=== PATIENT | male | born 1980 | race African-American/Black ===

== ENCOUNTER 2017-09-07 21:55 | Inpatient (IN) | payer MEDICAID, OTHER ==
[~2017-09-07] VITALS: Ht 172.7 cm; Wt 76.2 kg
[~2017-09-07 21:55] MED LIST: AMLO-511 PO; BENZ1TAB10 PO; FERR-89 PO; HALO10 PO; PHEN100C23 PO; RISP3 PO
[2017-09-07] MEDS ORDERED: VENL25TA47 PO (22:14)
[2017-09-07] MEDS ORDERED: DSS100 PO (22:14)
[2017-09-07] MEDS ORDERED: MAAES30 PO (22:14)
[2017-09-07] MEDS ORDERED: CLOZ25TA4 PO (22:14)
[2017-09-07] MEDS ORDERED: GABA-318 PO (22:14)
[2017-09-07 22:39] LABS: BASOPHILS % (AUTO) 0.4 % (0.0-2.0); EOSINOPHILS % (AUTO) 6.2 % (1.0-6.0); HEMATOCRIT 40.3 % (41-53); HEMOGLOBIN 13.2 g/dL (13.5-17.5); LYMPHOCYTES # (AUTO) 2.6 K/uL (1.0-4.8); LYMPHOCYTES % (AUTO) 29.2 % (22.0-44.0); MEAN CORPUSCULAR HEMOGLOBIN 27.3 pg (26.0-34.0); MEAN CORPUSCULAR HGB CONC 32.8 G/dL (31.0-37.0); MEAN CORPUSCULAR VOLUME 83 fL (80-100); MONOCYTES # (AUTO) 0.8 K/uL (0.1-1.0); NEUTROPHILS # (AUTO) 4.9 K/uL (1.8-7.7); NEUTROPHILS % (AUTO) 55.2 % (40.0-70.0); PLATELET COUNT (AUTO) 289 K/uL (150-450); RED BLOOD CELL COUNT(AUTO) 4.83 MIL/uL (4.50-5.90); RED CELL DISTRIBUTION WIDTH 14.5 % (11.5-14.5)
[2017-09-07 22:48] LABS: ANION GAP 11 mmol/L (8-16); CALCIUM, TOTAL 8.8 mg/dL (8.8-10.5); CARBON DIOXIDE 24 mmol/L (22-29); CHLORIDE 104 mmol/L (98-107); CREATININE 0.94 mg/dL (0.60-1.30); GLOMERULAR FILTR. RATE CALC > 60 mL/min (>60); GLUCOSE,RANDOM 133 mg/dL (70-110); POTASSIUM 3.9 mmol/L (3.5-5.1); SODIUM SERUM 139 mmol/L (136-145); UREA NITROGEN, BLOOD 20 mg/dL (7-18)
[2017-09-07 22:54] LABS: ALANINE AMINOTRANSFERASE 42 U/L (12-78); ALBUMIN 3.8 g/dL (3.4-5.0); ALKALINE PHOSPHATASE 129 U/L (46-116); ASPARTATE AMINOTRANSFERASE 20 U/L (15-37); BILIRUBIN,TOTAL 0.1 mg/dL (0.1-1.0); TOTAL PROTEIN, SERUM 7.9 g/dL (6.4-8.2)
[2017-09-07] MEDS ORDERED: HALOPERIDOL 5 MG TABLET PO PRN (23:15)
[2017-09-07 23:48] LABS: AMPHET/METH SCREEN,URINE NEGATIVE (NEGATIVE); BARBITURATE SCREEN, URINE NEGATIVE (NEGATIVE); BENZODIAZEPINES SCREEN,URINE NEGATIVE (NEGATIVE); CANNABINOID SCREEN,URINE NEGATIVE (NEGATIVE); COCAINE SCREEN,URINE NEGATIVE (NEGATIVE); METHADONE SCREEN, URINE NEGATIVE (NEGATIVE); OPIATE SCREEN,URINE NEGATIVE (NEGATIVE); PHENCYCLIDINE SCREEN,URINE NEGATIVE (NEGATIVE)
[2017-09-08 01:17] VITALS: BP 128/99
[2017-09-08] MEDS ORDERED: PNEUMOCOCCAL VACCINE POLYVALENT 0.5 ML VIAL [PPSV23] IM ONE (03:45)
[2017-09-08] MEDS ORDERED: ACETAMINOPHEN 325 MG TABLET PO PRN ×2 (06:45→08:15)
[2017-09-08] MEDS ORDERED: IBUPROFEN 400 MG TABLET PO PRN ×2 (06:45→08:15)
[2017-09-08 08:00] VITALS: BP 130/74
[2017-09-08 08:30] LABS: BASOPHILS % (AUTO) 0.5 % (0.0-2.0); EOSINOPHILS % (AUTO) 7.1 % (1.0-6.0); HEMATOCRIT 40.6 % (41-53); HEMOGLOBIN 13.4 g/dL (13.5-17.5); LYMPHOCYTES # (AUTO) 2.6 K/uL (1.0-4.8); LYMPHOCYTES % (AUTO) 30.1 % (22.0-44.0); MEAN CORPUSCULAR HEMOGLOBIN 27.5 pg (26.0-34.0); MEAN CORPUSCULAR HGB CONC 32.9 G/dL (31.0-37.0); MEAN CORPUSCULAR VOLUME 84 fL (80-100); MONOCYTES # (AUTO) 0.7 K/uL (0.1-1.0); MONOCYTES % (AUTO) 8.2 % (2.0-9.0); NEUTROPHILS # (AUTO) 4.6 K/uL (1.8-7.7); NEUTROPHILS % (AUTO) 54.1 % (40.0-70.0); PLATELET COUNT (AUTO) 307 K/uL (150-450); RED BLOOD CELL COUNT(AUTO) 4.86 MIL/uL (4.50-5.90); RED CELL DISTRIBUTION WIDTH 14.7 % (11.5-14.5)
[2017-09-08 08:52] LABS: HEMOGLOBIN A1C 6.2 % (4.5-6.2)
[2017-09-08 09:04] LABS: ALANINE AMINOTRANSFERASE 40 U/L (12-78); ALBUMIN 3.6 g/dL (3.4-5.0); ALKALINE PHOSPHATASE 125 U/L (46-116); ANION GAP 11 mmol/L (8-16); ASPARTATE AMINOTRANSFERASE 20 U/L (15-37); BILIRUBIN,TOTAL 0.2 mg/dL (0.1-1.0); CALCIUM, TOTAL 8.8 mg/dL (8.8-10.5); CARBON DIOXIDE 23 mmol/L (22-29); CHLORIDE 105 mmol/L (98-107); CHOL/HDL RATIO 3.9 (4.2-7.3); CHOLESTEROL 174 mg/dL (131-200); CREATININE 0.85 mg/dL (0.60-1.30); FREE T4 (FREE THYROXINE) 0.86 ng/dL (0.76-1.46); GLOMERULAR FILTR. RATE CALC > 60 mL/min (>60); GLUCOSE,RANDOM 107 mg/dL (70-110); HDL CHOLESTEROL 45 mg/dL (40-60); LDL CHOL (CALC.) 89 mg/dL (0-130); POTASSIUM 4.4 mmol/L (3.5-5.1); SODIUM SERUM 139 mmol/L (136-145); TOTAL PROTEIN, SERUM 7.6 g/dL (6.4-8.2); TRIGLYCERIDES 200 mg/dL (15-150); UREA NITROGEN, BLOOD 17 mg/dL (7-18)
[2017-09-08 16:10] VITALS: BP 130/76
[2017-09-08] MEDS: BENZTROPINE MESYLATE 1 MG TABLET PO SCH (16:56)
[2017-09-08] MEDS: FERROUS SULFATE 325 MG EC TABLET PO SCH (16:56)
[2017-09-08] MEDS: LORazepam 2 MG TABLET PO PRN (16:56)
[2017-09-08] MEDS: ZOLPIDEM TARTRATE 10 MG TABLET PO PRN (20:21)
[2017-09-08] MEDS: RisperiDONE 2 MG TABLET PO SCH (20:21)
[2017-09-08] MEDS: GABAPENTIN 300 MG CAPSULE PO SCH (20:21)
[2017-09-09] MEDS: FERROUS SULFATE 325 MG EC TABLET PO SCH ×3 (06:25→16:22)
[2017-09-09 06:30] VITALS: BP 120/90
[2017-09-09 08:15] VITALS: BP 128/70
[2017-09-09 08:46] LABS: HEMOGLOBIN A1C 6.2 % (4.5-6.2)
[2017-09-09] MEDS: VENLAFAXINE HCL 37.5 MG TABLET PO SCH ×3 (09:00→12:05)
[2017-09-09 09:13] LABS: CHOL/HDL RATIO 4.2 (4.2-7.3); THYROID STIMULATING HORMONE 1.3 uIU/mL (0.36-3.74)
[2017-09-09] MEDS: BENZTROPINE MESYLATE 1 MG TABLET PO SCH ×2 (10:17→16:22)
[2017-09-09] MEDS: ONDANSETRON HCL 4 MG TABLET PO PRN (10:18)
[2017-09-09 16:22] VITALS: BP 110/79
[2017-09-09] MEDS: LORazepam 2 MG TABLET PO PRN (16:40)
[2017-09-09] MEDS: ZOLPIDEM TARTRATE 10 MG TABLET PO PRN (20:34)
[2017-09-09] MEDS: GABAPENTIN 300 MG CAPSULE PO SCH (20:34)
[2017-09-09] MEDS: RisperiDONE 2 MG TABLET PO SCH (20:34)
[2017-09-10] MEDS: FERROUS SULFATE 325 MG EC TABLET PO SCH ×3 (06:19→16:17)
[2017-09-10 06:33] VITALS: BP 107/65
[2017-09-10 08:08] VITALS: BP 133/75
[2017-09-10] MEDS: VENLAFAXINE HCL 37.5 MG TABLET PO SCH (08:33)
[2017-09-10] MEDS: BENZTROPINE MESYLATE 1 MG TABLET PO SCH ×2 (08:33→16:17)
[2017-09-10 16:00] VITALS: BP 126/72
[2017-09-10] MEDS: ZOLPIDEM TARTRATE 10 MG TABLET PO PRN (20:33)
[2017-09-10] MEDS: RisperiDONE 2 MG TABLET PO SCH (20:33)
[2017-09-10] MEDS: GABAPENTIN 300 MG CAPSULE PO SCH (20:33)
[2017-09-10] MEDS: MAGNESIUM HYDROXIDE SUSPENSION 30 ML UDCUP PO PRN (21:42)
[2017-09-10 23:40] VITALS: BP 130/84
[2017-09-10] MEDS: LORazepam 2 MG TABLET PO PRN (23:46)
[2017-09-11 03:17] VITALS: BP 120/81
[2017-09-11] MEDS: FERROUS SULFATE 325 MG EC TABLET PO SCH ×3 (06:59→16:31)
[2017-09-11 08:00] VITALS: BP 114/76
[2017-09-11] MEDS: BENZTROPINE MESYLATE 1 MG TABLET PO SCH ×2 (08:07→16:31)
[2017-09-11] MEDS: ONDANSETRON HCL 4 MG TABLET PO PRN ×2 (08:09→18:19)
[2017-09-11] MEDS: VENLAFAXINE HCL 37.5 MG TABLET PO SCH (12:40)
[2017-09-11 17:14] VITALS: BP 110/70
[2017-09-11] MEDS: RisperiDONE 2 MG TABLET PO SCH (20:18)
[2017-09-11] MEDS: GABAPENTIN 300 MG CAPSULE PO SCH (20:18)
[2017-09-11] MEDS: ZOLPIDEM TARTRATE 10 MG TABLET PO PRN (21:04)
[2017-09-12 06:42] VITALS: BP 101/60
[2017-09-12] MEDS: FERROUS SULFATE 325 MG EC TABLET PO SCH ×3 (06:57→16:33)
[2017-09-12 08:01] VITALS: BP 114/81
[2017-09-12] MEDS: BENZTROPINE MESYLATE 1 MG TABLET PO SCH ×2 (08:06→16:34)
[2017-09-12] MEDS: VENLAFAXINE HCL 37.5 MG TABLET PO SCH (08:06)
[2017-09-12] MEDS: LORazepam 2 MG TABLET PO PRN ×2 (08:06→16:34)
[2017-09-12] MEDS: MAGNESIUM HYDROXIDE SUSPENSION 30 ML UDCUP PO PRN (10:54)
[2017-09-12 16:32] VITALS: BP 116/86
[2017-09-12] MEDS: RisperiDONE 2 MG TABLET PO SCH (18:32)
[2017-09-12] MEDS: ZOLPIDEM TARTRATE 10 MG TABLET PO PRN (20:52)
[2017-09-12] MEDS: GABAPENTIN 300 MG CAPSULE PO SCH (20:52)
[2017-09-12] MEDS ORDERED: DOCUSATE SODIUM 100 MG CAPSULE PO PRN (21:30)
[2017-09-13] MEDS: FERROUS SULFATE 325 MG EC TABLET PO SCH ×2 (06:39→11:42)
[2017-09-13 06:56] VITALS: BP 120/81
[2017-09-13] MEDS ORDERED: LOPERAMIDE HCL 2 MG CAPSULE PO PRN (07:30)
[2017-09-13 08:08] VITALS: BP 117/85
[2017-09-13] MEDS: BENZTROPINE MESYLATE 1 MG TABLET PO SCH (08:19)
[2017-09-13] MEDS: RisperiDONE 2 MG TABLET PO SCH (08:19)
[2017-09-13] MEDS ORDERED: VENLAFAXINE HCL 75 MG ER CAPSULE PO SCH (09:00)
[2017-09-13] MEDS ORDERED: BENZ1TAB10 PO (09:37)
[2017-09-13] MEDS ORDERED: GABA-531 PO (09:37)
[2017-09-13] MEDS ORDERED: VENL-67 PO (09:37)
[2017-09-13] MEDS ORDERED: FERR-89 PO (09:37)
[2017-09-13] MEDS ORDERED: RISP2 PO (09:37)
== END 2017-09-13 12:15 | disposition home or self-care (01) | DRG 750 ==
LOC: EMS 21:56 → B3A 23:30 → B2S 09-10 16:15
PROVIDERS: ADMIT Psychiatry & Neurology Child & Adolescent Psychiatry; ATTEND Psychiatry & Neurology Child & Adolescent Psychiatry
DX: F25.1 Schizoaffective disorder, depressive type (principal); G40.909 Epilepsy, unspecified, not intractable, without status epilepticus; R45.851 Suicidal ideations; I10 Essential (primary) hypertension; E78.5 Hyperlipidemia, unspecified; D64.9 Anemia, unspecified; F17.200 Nicotine dependence, unspecified, uncomplicated; Z71.6 Tobacco abuse counseling; Z79.899 Other long term (current) drug therapy; Z91.19 Patient's noncompliance with other medical treatment and regimen
CPT/HCPCS: 83036; 84439; 84443; 99285; G0480; Q0162